=== PATIENT | male | born 1935 | race Caucasian/White ===

== ENCOUNTER 2018-07-23 13:00 | Emergency (ER) | payer MEDICARE, BC ==
[2018-07-23] MEDS: Ciprofloxacin 500 MG Tab PO ONE (15:10)
--- NOTE | 2018-07-23 15:16 | EDM.PDOC ---
Scribed by Kimberly Doyle 07/23/18 1443 for Tyler King MD ED HPI GENERAL MEDICAL PROBLEM - General Chief Complaint: Genitourinary Problem Stated Complaint: Decreased urine from zavala cath, penile irritation Time Seen by Provider: 07/23/18 13:10 Source of Information: Reports: Patient, Family, RN, RN Notes Reviewed History Limitations: Reports: No Limitations - History of Present Illness INITIAL COMMENTS - FREE TEXT/NARRATIVE: Pt presents to ER from home by POV with c/o decreased urine output from his zavala cath. during the last 24 hours. He denies abdominal pain, fever, or flank pain. He admits to distal penile irritation and sensation of swelling. Pt states he was admitted to [facility] about 2 weeks ago and was found to have a distended urinary bladder with 3 liters of urine. Onset: Gradual Duration: Day(s): (1) Location: Reports: Other (urinary) Quality: Reports: Pressure Severity: Mild Improves with: Reports: None Worsens with: Reports: None Associated Symptoms: Reports: No Other Symptoms - Related Data Allergies Allergy/AdvReac Type Severity Reaction Status Date / Time No Known Allergies Allergy Verified 07/23/18 14:06 Past Medical History Genitourinary History: Reports: BPH, Prostate Disorder, Retention, Urinary Social & Family History - Family History Family Medical History: Noncontributory - Living Situation & Occupation Living situation: Reports: Single, Alone Occupation: Retired ED ROS GENERAL - Review of Systems Review Of Systems: ROS reveals no pertinent complaints other than HPI. ED EXAM, RENAL/ - Physical Exam Exam: See Below Exam Limited By: No Limitations General Appearance: Alert, WD/WN, No Apparent Distress Head: Atraumatic, Normocephalic Respiratory/Chest: No Respiratory Distress, Lungs Clear, Chest Non-Tender Cardiovascular: Regular Rate, Rhythm, Tachycardia GI/Abdominal: Normal Bowel Sounds, Soft, Non-Tender, Pelvis Stable. No: Guarding, Rigid, Rebound (Male) Exam: Normal Inspection, Suprapubic Fullness. No: Inguinal Lymphadenopathy, Penile Lesions, Rash Rectal (Males) Exam: Deferred Back Exam: No: CVA Tenderness (L), CVA Tenderness (R) Extremities: Non-Tender, Pedal Edema (mild edema of left lower extremity ( improving since onset per pt)) Neurological: Alert, Oriented, No Motor/Sensory Deficits Psychiatric: Normal Mood Skin Exam: Warm, Dry, Intact, Normal Color, No Rash Course - Vital Signs Last Recorded V/S: Last Vital Signs Temp 36.6 C 07/23/18 13:08 Pulse 114 H 07/23/18 13:08 Resp 16 07/23/18 13:08 BP 146/89 H 07/23/18 13:08 Pulse Ox 97 07/23/18 13:08 - Orders/Labs/Meds Orders: Active Orders 24 hr Category Date Time Status Bladder Irrigation [RC] ONETIME Care 07/23/18 13:33 Active Bladder Scan [RC] ASDIRECTED Care 07/23/18 13:16 Active CULTURE URINE [RM] Stat Lab 07/23/18 13:33 Received Labs: Laboratory Tests 07/23/18 Range/Units 14:00 Urine Color Yellow (YELLOW) Urine Appearance Cloudy (CLEAR) Urine pH 6.5 (5.0-9.0) Ur Specific Pala >= 1.030 (1.005-1.030) Urine Protein >=300 H (NEGATIVE) Urine Glucose (UA) Negative (NEGATIVE) Urine Ketones Negative (NEGATIVE) Urine Occult Blood Large H (NEGATIVE) Urine Nitrite Positive H (NEGATIVE) Urine Bilirubin Negative (NEGATIVE) Urine Urobilinogen 1.0 (0.2-1.0) mg/dL Ur Leukocyte Esterase Small H (NEGATIVE) Urine RBC >100 H /HPF Urine WBC Semi-packed H (0-5/HPF) /HPF Ur Epithelial Cells Moderate H /HPF Amorphous Sediment Few (0/HPF) /HPF Urine Bacteria Moderate H (0-FEW/HPF) /HPF Urine Mucus Moderate H /LPF Urine culture: pending Meds: Medications Discontinued Medications Generic Name Dose Route Start Last Admin Trade Name Freq PRN Reason Stop Dose Admin Ciprofloxacin 500 mg 07/23/18 14:41 Ciprofloxacin Hcl PO 07/23/18 14:42 ONETIME ONE Departure - Departure Time of Disposition: 14:41 Disposition: Home, Self-Care 01 Condition: Fair Clinical Impression: Catheter-associated urinary tract infection Qualifiers: Indwelling urinary catheter type: indwelling urethral catheter Encounter type: initial encounter Qualified Code(s): T83.511A - Infection and inflammatory reaction due to indwelling urethral catheter, initial encounter; N39.0 - Urinary tract infection, site not specified - Discharge Information Instructions: Indwelling Urinary Catheter Care, Adult, Catheter-Associated Urinary Tract Infection FAQs - ANNA Forms: ED Department Discharge Additional Instructions: Rx: Cipro 500mg Flush catheter as needed. Follow up in clinic next week for repeat urine test. Return to ER if needed. - My Orders Last 24 Hours: My Active Orders 07/23/18 13:16 Bladder Scan [RC] ASDIRECTED 07/23/18 13:33 Bladder Irrigation [RC] ONETIME CULTURE URINE [RM] Stat - Assessment/Plan Last 24 Hours: My Active Orders 07/23/18 13:16 Bladder Scan [RC] ASDIRECTED 07/23/18 13:33 Bladder Irrigation [RC] ONETIME CULTURE URINE [RM] Stat I have read and agree with the documentation that has been completed regarding this visit. By signing this record, I attest that the documentation was completed in my physical presence and is an accurate record of the encounter.
== END 2018-07-23 13:55 | disposition home or self-care (01) ==
LOC: DL.ED 13:00
DX: T83.511A Infection and inflammatory reaction due to indwelling urethral catheter, initial encounter (principal)
CPT/HCPCS: 51700; 51798; 81001; 87086; 87088; 87186; 99283; 99284

== ENCOUNTER 2022-04-18 15:46 | Emergency (ER) | payer MEDICARE, BC ==
[2022-04-18] MEDS ORDERED: Ciprofloxacin 500 MG Tab PO ONE (15:47)
[2022-04-18] MEDS ORDERED: Ciprofloxacin 500 MG Tab ONE ×2 (17:28→17:44)
== END 2022-04-18 17:45 | disposition home or self-care (01) ==
LOC: DL.ED 15:46
DX: T83.511A Infection and inflammatory reaction due to indwelling urethral catheter, initial encounter (principal); N39.0 Urinary tract infection, site not specified
CPT/HCPCS: 81001; 87086; 87088; 87186; 99283; A9270-GY